=== PATIENT | male | born 1995 | race Hispanic/Latino ===

== ENCOUNTER → 2023-11-05 | Outpatient (CLI) | payer OTHER ==
[2023-11-05 14:01] LABS: HEMATOCRIT 45.9 % (42.0-52.0); HEMOGLOBIN 15.6 g/dl (13.5-17.5); MEAN CORPUSCULAR HEMOGLOBIN 28.9 pg (27.0-33.0); MEAN CORPUSCULAR VOLUME 85.2 fl (80.0-96.0); PLATELET COUNT, AUTOMATED 272 10^3/uL (150-450); RED BLOOD COUNT 5.39 10^6/uL (4.30-6.10)
[2023-11-05 14:04] LABS: BLOOD UREA NITROGEN 13 MG/DL (9-23); CALCIUM LEVEL 9.3 MG/DL (8.5-10.1); CARBON DIOXIDE LEVEL 31 MMOL/L (20-31); CHLORIDE LEVEL 105 MMOL/L (98-107); CREATININE FOR GFR 0.72 MG/DL (0.70-1.30); GLOMERULAR FILTRATION RATE > 60.0 (>60); GLUCOSE, FASTING 100 MG/DL (60-100); LDH LACTATE DEHYDROGENASE 183 U/L (120-246); POTASSIUM SERUM 3.8 MMOL/L (3.5-5.1); SODIUM LEVEL 137 MMOL/L (136-145)
[2023-11-05 14:23] LABS: INR 1.09; PROTHROMBIN TIME 13.8 SECONDS (12.5-14.5)
[2023-11-05 14:24] LABS: PARTIAL THROMBOPLASTIN TIME 31.8 SECONDS (24.8-34.2)
== END ==
LOC: M PLALAB 09:16
PROVIDERS: ATTEND Urology
DX: N50.89 Other specified disorders of the male genital organs (principal)

== ENCOUNTER 2023-11-11 06:04 | Day surgery (SDC) | payer OTHER ==
[~2023-11-11] VITALS: Ht 170.2 cm; Wt 90.3 kg
[~2023-11-11 06:04] MED LIST: ceFAZolin SOD 2 GM in IV 1 EA IV ONE
[2023-11-11] MEDS ORDERED: LR 1,000 ML IV SCH ×2 (06:40→09:05)
[2023-11-11] MEDS ORDERED: LIDOCAINE 1% SDV 30ML VIAL As Ordered ONE (07:10)
[2023-11-11] MEDS ORDERED: fentaNYL 100 MCG/2 ML INJECTION As Ordered ONE (07:17)
[2023-11-11] MEDS ORDERED: HYDROmorphone HCL 2MG/ML 1ML VIAL As Ordered ONE (07:17)
[2023-11-11] MEDS ORDERED: MIDAZOLAM INJ 2MG/2ML VIAL As Ordered ONE (07:17)
[2023-11-11] MEDS ORDERED: LIDOCAINE 2% 100MG/5ML SDV (FOR ANES.) As Ordered ONE (07:18)
[2023-11-11] MEDS ORDERED: propofoL 200 MG/20 ML VIAL As Ordered ONE ×2 (07:18→08:19)
[2023-11-11] MEDS ORDERED: ONDANSETRON 4MG 2ML VIAL As Ordered ONE (07:19)
[2023-11-11] MEDS ORDERED: GLYCOPYRROLATE INJ 0.2 MG/ML 2 ML VIAL As Ordered ONE (07:49)
[2023-11-11] MEDS ORDERED: ACETAMINOPHEN 1000MG 100ML IV BAG As Ordered ONE (07:52)
[2023-11-11] MEDS ORDERED: oxyCODONE 5MG TAB PO PRN (09:05)
[2023-11-11] MEDS ORDERED: MEPERIDINE 25 MG/ML 1ML VIAL IV PRN (09:05)
[2023-11-11] MEDS ORDERED: diphenhydrAMINE 50MG/ML VIAL IV PRN (09:05)
[2023-11-11] MEDS ORDERED: fentaNYL 100 MCG/2 ML INJECTION IV PRN (09:05)
[2023-11-11] MEDS ORDERED: HYDROMORPHONE HCL 0.5 MG/ 0.5 ML SYRINGE IV PRN (09:05)
[2023-11-11] MEDS ORDERED: ONDANSETRON 4MG 2ML VIAL IV PRN (09:05)
[2023-11-11] MEDS ORDERED: METOCLOPRAMIDE INJ 10MG/2ML VIAL IV PRN (09:05)
[2023-11-11] MEDS ORDERED: OXYC1TAB23 PO (09:18)
[2023-11-11] MEDS ORDERED: PERCOCET 5MG/325MG TAB PO PRN (09:35)
[2023-11-11 14:29] VITALS: BP 131/63; TEMP 97.3; O2SAT 96
== END 2023-11-11 14:29 | disposition home or self-care (01) ==
LOC: M SDC 06:04
PROVIDERS: ATTEND Urology
DX: C62.92 Malignant neoplasm of left testis, unspecified whether descended or undescended (principal)
CPT/HCPCS: 54530; 88309; J0131; J0665; J0690; J1100; J1170; J2250; J2405; J3010

== ENCOUNTER → 2023-11-29 | Outpatient (CLI) | payer OTHER ==
[~2023-11-29] MED LIST changes: +ISOVUE-370 76% 100ML VIAL ONE; +OXYC1TAB23 PO; -ceFAZolin SOD 2 GM in IV 1 EA IV ONE
== END ==
LOC: M PLAIMG 13:37
PROVIDERS: ATTEND Urology
DX: C62.92 Malignant neoplasm of left testis, unspecified whether descended or undescended (principal)

== ENCOUNTER → 2023-12-16 | Outpatient (CLI) | payer OTHER ==
[~2023-12-16] MED LIST changes: -ISOVUE-370 76% 100ML VIAL ONE
== END ==
LOC: M PLALAB 14:06
PROVIDERS: ATTEND Urology
DX: C62.92 Malignant neoplasm of left testis, unspecified whether descended or undescended (principal)

== ENCOUNTER → 2023-12-26 | Outpatient (CLI) | payer OTHER ==
[~2023-12-26] MED LIST changes: +ALBU6.7H6 INH
== END ==
LOC: M CARPUL 07:56
PROVIDERS: ATTEND Physician Assistant
DX: R06.02 Shortness of breath (principal)

== ENCOUNTER → 2024-01-06 | Outpatient (CLI) | payer OTHER ==
[~2024-01-06] MED LIST changes: +ONDA-84 PO
[2024-01-06 18:44] LABS: ALBUMIN 4.6 G/DL (3.2-5.2); ALKALINE PHOSPHATASE 96 U/L (46-116); ALT/SGPT 37 U/L (7.0-40); AST/SGOT 21 U/L (<34); BILIRUBIN,TOTAL 0.9 MG/DL (0.3-1.2); BLOOD UREA NITROGEN 16 MG/DL (9-23); CALCIUM LEVEL 9.5 MG/DL (8.5-10.1); CARBON DIOXIDE LEVEL 31 MMOL/L (20-31); CHLORIDE LEVEL 106 MMOL/L (98-107); CREATININE FOR GFR 0.64 MG/DL (0.70-1.30); GLOMERULAR FILTRATION RATE > 60.0 (>60); GLUCOSE, FASTING 84 MG/DL (60-100); POTASSIUM SERUM 4.3 MMOL/L (3.5-5.1); SODIUM LEVEL 139 MMOL/L (136-145); TOTAL PROTEIN 7.3 G/DL (5.7-8.2)
[2024-01-06 18:56] LABS: BASO # 0.1 10^3/uL (0.0-0.2); BASO % 0.6 % (0.0-1.0); EOS # 0.3 10^3/uL (0.0-0.5); EOS % 4.2 % (0.0-3.0); HEMATOCRIT 43.6 % (42.0-52.0); LYMPH # 2.5 10^3/uL (1.5-5.0); LYMPH % 31.5 % (24.0-44.0); MEAN CORPUSCULAR HGB CONC 34.4 g/dl (32.0-36.5); MEAN CORPUSCULAR VOLUME 84.2 fl (80.0-96.0); MONO # 0.6 10^3/uL (0.0-0.8); NEUTROPHILS # 4.5 10^3/uL (1.5-8.5); NEUTROPHILS % 56.1 % (36.0-66.0); PLATELET COUNT, AUTOMATED 300 10^3/uL (150-450); RED BLOOD COUNT 5.18 10^6/uL (4.30-6.10)
== END ==
LOC: M PLALAB 15:44
PROVIDERS: ATTEND Internal Medicine Hematology & Oncology
DX: C62.90 Malignant neoplasm of unspecified testis, unspecified whether descended or undescended (principal)

== ENCOUNTER → 2024-02-20 | Outpatient (CLI) | payer OTHER ==
[2024-02-20 18:31] LABS: BASO # 0.1 10^3/uL (0.0-0.2); BASO % 0.8 % (0.0-1.0); EOS # 0.3 10^3/uL (0.0-0.5); EOS % 5.2 % (0.0-3.0); HEMATOCRIT 44.4 % (42.0-52.0); HEMOGLOBIN 14.9 g/dl (13.5-17.5); LYMPH # 2.3 10^3/uL (1.5-5.0); LYMPH % 34.7 % (24.0-44.0); MEAN CORPUSCULAR HEMOGLOBIN 28.7 pg (27.0-33.0); MEAN CORPUSCULAR HGB CONC 33.6 g/dl (32.0-36.5); MEAN CORPUSCULAR VOLUME 85.4 fl (80.0-96.0); MONO # 0.4 10^3/uL (0.0-0.8); MONO % 6.7 % (2.0-8.0); NEUTROPHILS # 3.4 10^3/uL (1.5-8.5); NEUTROPHILS % 51.2 % (36.0-66.0); PLATELET COUNT, AUTOMATED 275 10^3/uL (150-450); WHITE BLOOD COUNT 6.5 10^3/uL (4.0-10.0)
[2024-02-20 18:50] LABS: ALBUMIN 4.5 G/DL (3.2-5.2); ALKALINE PHOSPHATASE 91 U/L (46-116); ALT/SGPT 37 U/L (7.0-40); AST/SGOT 19 U/L (<34); BLOOD UREA NITROGEN 18 MG/DL (9-23); CALCIUM LEVEL 9.2 MG/DL (8.5-10.1); CARBON DIOXIDE LEVEL 28 MMOL/L (20-31); CHLORIDE LEVEL 103 MMOL/L (98-107); CHOLESTEROL LEVEL 189 MG/DL (<200); CHOLESTEROL RISK RATIO 4.29 (<5); CREATININE FOR GFR 0.87 MG/DL (0.70-1.30); GLOMERULAR FILTRATION RATE > 60.0 (>60); GLUCOSE, FASTING 90 MG/DL (60-100); LDL CHOLESTEROL 113.2 MG/DL (<100); MAGNESIUM LEVEL 2.1 MG/DL (1.8-2.4); POTASSIUM SERUM 4.1 MMOL/L (3.5-5.1); SODIUM LEVEL 138 MMOL/L (136-145); TOTAL PROTEIN 7.1 G/DL (5.7-8.2); TRIGLYCERIDES LEVEL 159 MG/DL (<150)
== END ==
LOC: M PLALAB 14:44
PROVIDERS: ATTEND Internal Medicine Cardiovascular Disease
DX: R07.9 Chest pain, unspecified (principal); R06.09 Other forms of dyspnea; R94.31 Abnormal electrocardiogram [ECG] [EKG]; E78.2 Mixed hyperlipidemia; R06.02 Shortness of breath; I48.0 Paroxysmal atrial fibrillation; Z13.1 Encounter for screening for diabetes mellitus; I50.9 Heart failure, unspecified

== ENCOUNTER → 2024-06-17 | Outpatient (CLI) | payer OTHER ==
[~2024-06-17] MED LIST changes: +ISOVUE-370 76% 100ML VIAL ONE
== END ==
LOC: M PLAIMG 08:36
PROVIDERS: ATTEND Urology
DX: C62.92 Malignant neoplasm of left testis, unspecified whether descended or undescended (principal)